=== PATIENT | male | born 1970 | race African-American/Black ===

== ENCOUNTER 2017-05-01 11:13 | Emergency (ER) | payer OTHER ==
[~2017-05-01] VITALS: Ht 167.6 cm; Wt 99.8 kg
[2017-05-01 13:18] LABS: URINE SOURCE CLEAN CATCH
[2017-05-01 13:23] LABS: URINE APPEARANCE CLOUDY; URINE BILIRUBIN NEG (NEG); URINE BLOOD NEG (NEG); URINE COLOR YELLOW; URINE GLUCOSE >1000 MG/DL (NEG); URINE KETONE NEG (NEG); URINE LEUKOCYTE ESTERASE 1+ (NEG); URINE NITRATE NEG (NEG); URINE PH 6.5 (5-8); URINE PROTEIN TRACE (NEG)
[2017-05-01 13:25] LABS: CULTURE INDICATED? YES; U HYALINE CASTS AUWI 0-2 /[LPF]; URBCS1 AUWI 0-2 /[HPF] (0-2); URINE BACTERIA AUWI 1+ (NEGATIVE); URINE SQUAMOUS EPITHELIAL CELL MOD /[HPF]
[2017-05-03 04:56] LABS: CHLAMYDIA TRACH Not Detected (Not Detected); N GONOR Not Detected (Not Detected)
== END 2017-05-01 14:39 | disposition home or self-care (01) ==
LOC: CED 11:13 → CFTX 11:13
PROVIDERS: Nurse Practitioner
DX: A60.00 Herpesviral infection of urogenital system, unspecified (principal); E11.9 Type 2 diabetes mellitus without complications; I10 Essential (primary) hypertension
CPT/HCPCS: 81003; 82947; 87086; 87088; 87491; 87591; 96372; 99283; J0696